=== PATIENT | female | born 1965 | race Caucasian/White ===

== ENCOUNTER 2020-09-11 22:30 | Observation (INO) | payer OTHER ==
--- NOTE | 2020-09-11 22:32 | ERPHSYRPT ---
- History of Present Illness Time Seen by Provider: 09/11/20 22:32 Source: patient Exam Limitations: clinical condition Physician History: This is a 55-year-old white female has a history of asthma and received her second COVID-19 vaccination yesterday at noon. 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 Approximately 4 hours later, the patient felt very fatigued and weak and had muscle aches and pains. At approximately 3:00 this morning she began having symptoms of nausea and vomiting. It has since evolved into shortness of breath. Patient gave herself an albuterol nebulizer treatment. However her shortness of breath worsened. She denies chest pain. She denies abdominal pain. She has a mild cough. Patient is allergic to bees and has an EpiPen in case of envenomation. Patient has remote history of myocardial infarction in the distant past. Patient states that she has had no history of any bleeding or clotting disorders. Timing/Duration: today Activities at Onset: none Severity of Dyspnea-Max: moderate Severity of Dyspnea-Current: moderate Possible Cause: no prior episodes Modifying Factors: Improves With: coughing Associated Symptoms: cough, wheezing, No chest pain/discomfort Allergies/Adverse Reactions: beeswax Allergy (Severe, Verified 09/11/20 22:48) Anaphylactic Reaction shellfish derived Allergy (Severe, Verified 09/11/20 22:48) Anaphylactic Reaction Home Medications: Albuterol Sulfate [Albuterol Sulfate Hfa] 1 neb IH Q4HPRN PRN 09/11/20 [History] Albuterol Sulfate [Proair Hfa] 2 puffs IH Q4HPRN PRN 09/11/20 [History] Atorvastatin Calcium [Lipitor 40Mg] 1 tab PO HS 09/11/20 [History] Dulaglutide [Trulicity] 0.75 mg SQ WEEKLY 09/11/20 [History] Ergocalciferol (Vitamin D2) [Vitamin D] 1 tab PO WEEKLY 09/11/20 [History] Levothyroxine Sodium [Synthroid] 1 tab PO DAILY 09/11/20 [History] Metformin HCl [Fortamet] 1,000 mg PO BID 09/11/20 [History] Ondansetron ODT 4 MG [Zofran Odt 4 mg] 1 tab PO BID PRN 09/11/20 [History] PANTOPRAZOLE 40 mg Tablet [Protonix 40MG Tablet] 1 tab PO DAILY 09/11/20 [History] Zolpidem Tartrate 5 mg PO HS PRN PRN 09/11/20 [History] Travel Risk - International Travel Have you traveled outside of the country in past 3 weeks: No - Coronavirus Screening Symptoms: Cough: New Onset, Shortness of Breath, Vomiting/Diarrhea Close contact with a COVID-19 positive Pt in past 14-21 Days: No - Review of Systems Constitutional: No Symptoms Eyes: No Symptoms Ears, Nose, & Throat: No Symptoms Respiratory: Cough, Dyspnea, Wheezing Cardiac: No Symptoms Abdominal/Gastrointestinal: No Symptoms Genitourinary Symptoms: No Symptoms Musculoskeletal: No Symptoms Skin: No Symptoms Neurological: No Symptoms Psychological: No Symptoms Endocrine: No Symptoms Hematologic/Lymphatic: No Symptoms Immunological/Allergic: No Symptoms All Other Systems: Reviewed and Negative - Past Medical History Pertinent Past Medical History: Yes Cardiac History: Hypertension, Myocardial Infarction (HI) Respiratory History: Asthma Endocrine Medical History: No Pertinent History Musculoskeletal History: No Pertinent History GI Medical History: No Pertinent History History: No Pertinent History Psycho-Social History: No Pertinent History Female Reproductive Disorders: No Pertinent History - Past Surgical History Past Surgical History: Yes - Nursing Vital Signs Nursing Vital Signs: Initial Vital Signs Temperature 98.4 F 09/11/20 22:32 Pulse Rate 113 H 09/11/20 22:32 Respiratory Rate 28 H 09/11/20 22:32 Blood Pressure 153/106 09/11/20 22:32 O2 Sat by Pulse Oximetry 96 09/11/20 22:32 Pain Scale Pain Intensity 0 - Physical Exam General Appearance: moderate distress, alert, anxiety, obese Eye Exam: PERRL/EOMI, eyes nml inspection Ears, Nose, Throat Exam: hearing grossly normal, normal ENT inspection, normal pharynx Neck Exam: normal inspection, non-tender, supple, full range of motion Respiratory Exam: respiratory distress, airway intact, wheezing Cardiovascular/Chest Exam: tachycardia Abdominal/Gastrointestinal Exam: soft, normal bowel sounds, No tenderness Rectal Exam: not done Extremity Exam: non-tender, normal range of motion, normal capillary refill (Tips) Neurologic Exam: alert, oriented x 3, cooperative, normal mood/affect, nml cerebellar function, nml station & gait, sensation nml Skin Exam: normal color, warm, dry Lymphatic Exam: No adenopathy SpO2 Interpretation: normal O2 Delivery: Room Air - Course Nursing assessment & vital signs reviewed: Yes EKG Interpreted by Me: RATE ([id number]), Sinus Tach, NORMAL AXIS, NORMAL INTERVALS, NORMAL QRS, Other (No acute ischemic changes on today's EKG. No comparison EKG available.) Ordered Tests: Active Orders 24 hr Category Date Time Status Shearing Supervisor STAT Care 09/11/20 22:39 Active EKG-ER Only STAT Care 09/11/20 22:38 Active IV Insertion STAT Care 09/11/20 22:38 Active Pulse Oximetry (ED) STAT Care 09/11/20 22:38 Active CHEST 1 VIEW (PORTABLE) Stat Exams 09/11/20 22:38 Ordered CHEST WITH CONTRAST [CT] Stat Exams 09/11/20 23:20 Ordered CBC W DIFF Stat Lab 09/11/20 22:45 Completed CMP Stat Lab 09/11/20 22:45 Completed D-DIMER QUANTITATIVE Stat Lab 09/11/20 22:45 Completed INFLUENZA A+B MILENA Stat Lab 09/11/20 23:21 Completed [place] Screen Stat Lab 09/11/20 22:45 Completed TROPONIN Q3H Lab 09/11/20 22:45 Completed TROPONIN Q3H Lab 09/12/20 01:45 Ordered TROPONIN Q3H Lab 09/12/20 04:45 Ordered TROPONIN Q3H Lab 09/12/20 07:45 Ordered TROPONIN Q3H Lab 09/12/20 10:45 Ordered Transfer Order Routine Transfer 09/12/20 Ordered Medication Summary Generic Name Dose Route Start Last Admin Trade Name Freq PRN Reason Stop Dose Admin Sodium Chloride 1,000 mls @ 100 mls/hr 09/11/20 22:45 09/11/20 22:45 Sodium Chloride 0.9% 1000 Ml IV 10/11/20 22:44 100 mls/hr .Q10H JHOANA Administration Discontinued Medications Generic Name Dose Route Start Last Admin Trade Name Freq PRN Reason Stop Dose Admin Diphenhydramine HCl 50 mg 09/11/20 22:38 09/11/20 22:48 Benadryl 50 Mg/Ml IV 09/11/20 22:39 50 mg STAT ONE Administration Diphenhydramine HCl Confirm 09/11/20 22:44 Benadryl 50 Mg/Ml Administered 09/11/20 22:45 Dose 50 mg .ROUTE .STK-MED ONE Famotidine 20 mg 09/11/20 22:38 09/11/20 22:48 Pepcid 20 Mg Vial IV 09/11/20 22:39 20 mg STAT ONE Administration Famotidine Confirm 09/11/20 22:44 Pepcid 20 Mg Vial Administered 09/11/20 22:45 Dose 20 mg IV .STK-MED ONE Methylprednisolone Sodium Succinate 125 mg 09/11/20 22:38 09/11/20 22:47 Solu-Medrol 125 Mg IV 09/11/20 22:39 125 mg STAT ONE Administration Methylprednisolone Sodium Succinate Confirm 09/11/20 22:44 Solu-Medrol 125 Mg Administered 09/11/20 22:45 Dose 125 mg .ROUTE .STK-MED ONE Ondansetron HCl 4 mg 09/11/20 22:39 09/11/20 22:48 Zofran 4 Mg/2 Ml Vial IV 09/11/20 22:40 4 mg STAT ONE Administration Ondansetron HCl Confirm 09/11/20 22:44 Zofran 4 Mg/2 Ml Vial Administered 09/11/20 22:45 Dose 4 mg .ROUTE .STK-MED ONE Lab/Rad Data: Laboratory Result Diagrams 09/11/20 22:45 09/11/20 22:45 Laboratory Results 09/11/20 09/11/20 09/11/20 Range/Units 23:21 22:45 22:45 WBC (4.0-10.5) K/mm3 RBC (4.1-5.4) M/mm3 Hgb (12.0-16.0) gm/dl Hct (35-47) % MCV (78-100) fl MCH (26-32) pg MCHC (32-36) g/dl RDW (11.5-14.0) % Plt Count (150-450) K/mm3 MPV (7.5-11.0) fl Gran % (36.0-66.0) % Eos # (Auto) (0-0.5) Absolute Lymphs (auto) (1.0-4.6) Absolute Monos (auto) (0.0-1.3) Lymphocytes % (24.0-44.0) % Monocytes % (0.0-12.0) % Eosinophils % (0.00-5.0) % Basophils % (0.0-0.4) % Absolute Granulocytes (1.4-6.9) Basophils # (0-0.4) D-Dimer (215-500) ng/mL Sodium (137-145) mmol/L Potassium (3.5-5.1) mmol/L Chloride (98-107) mmol/L Carbon Dioxide (22-30) mmol/L Anion Gap (5-15) MEQ/L BUN (7-17) mg/dL Creatinine (0.52-1.04) mg/dL Estimated GFR ML/MIN Glucose (74-106) mg/dL Calcium (8.4-10.2) mg/dL Total Bilirubin (0.2-1.3) mg/dL AST (14-36) U/L ALT (0-35) U/L Alkaline Phosphatase (38-126) U/L Troponin I < 0.012 (0.000-0.034) ng/mL Serum Total Protein (6.3-8.2) g/dL Albumin (3.5-5.0) g/dL Monoscreen NEGATIVE (Negative) Influenza Type A Ag NEGATIVE (NEGATIVE) Influenza Type B Ag NEGATIVE (NEGATIVE) 09/11/20 09/11/20 09/11/20 Range/Units 22:45 22:45 22:45 WBC 6.1 (4.0-10.5) K/mm3 RBC 4.60 (4.1-5.4) M/mm3 Hgb 13.6 (12.0-16.0) gm/dl Hct 41.6 (35-47) % MCV 90.4 (78-100) fl MCH 29.6 (26-32) pg MCHC 32.7 (32-36) g/dl RDW 13.4 (11.5-14.0) % Plt Count 169 (150-450) K/mm3 MPV 9.4 (7.5-11.0) fl Gran % 61.6 (36.0-66.0) % Eos # (Auto) 0.01 (0-0.5) Absolute Lymphs (auto) 1.68 (1.0-4.6) Absolute Monos (auto) 0.61 (0.0-1.3) Lymphocytes % 27.8 (24.0-44.0) % Monocytes % 10.1 (0.0-12.0) % Eosinophils % 0.2 (0.00-5.0) % Basophils % 0.3 (0.0-0.4) % Absolute Granulocytes 3.73 (1.4-6.9) Basophils # 0.02 (0-0.4) D-Dimer 3173 H* (215-500) ng/mL Sodium 136 L (137-145) mmol/L Potassium 3.6 (3.5-5.1) mmol/L Chloride 103 (98-107) mmol/L Carbon Dioxide 21 L (22-30) mmol/L Anion Gap 16.8 H (5-15) MEQ/L BUN 9 (7-17) mg/dL Creatinine 0.75 (0.52-1.04) mg/dL Estimated GFR > 60.0 ML/MIN Glucose 135 H (74-106) mg/dL Calcium 10.0 (8.4-10.2) mg/dL Total Bilirubin 0.90 (0.2-1.3) mg/dL AST 48 H (14-36) U/L ALT 66 H (0-35) U/L Alkaline Phosphatase 67 (38-126) U/L Troponin I (0.000-0.034) ng/mL Serum Total Protein 7.4 (6.3-8.2) g/dL Albumin 4.5 (3.5-5.0) g/dL Monoscreen (Negative) Influenza Type A Ag (NEGATIVE) Influenza Type B Ag (NEGATIVE) - Progress Air Movement: fair Progress Note: 09/11/20 23:49 Patient told me that she is allergic to shellfish. She also is stated that she has had intravenous contrast before without any issues after premedicating with Benadryl and steroids. Patient has been premedicated with Benadryl and methylprednisolone. Her D-dimer is elevated and she has shortness of breath and therefore we will proceed with CTA of chest to evaluate for the presence of pulmonary emboli. 09/12/20 00:08 Patient returns from the CTA of the chest without any unusual or acute symptoms following injection of the contrast. Patient CTA of the chest results shows no visible acute pulmonary embolism. There are no acute cardiopulmonary processes. 09/12/20 00:22 Medical decision making: This patient needs hospitalization and observation for at least 24 [address]. I spoke with Dr. Sandoval, our Covid unit hospitalist. He agrees. I asked him whether or not we needed to perform a rapid Covid test and he stated he did not believe we needed to at this time. We used the test results to determine where the patient should be placed. The patient will be pl aced in observation in the Covid unit. He wants to continue steroids, oxygen and nebulizer treatments. We will also provide low rate IV fluids. Blood Culture(s) Obtained: Yes Antibiotics given: No Counseled pt/family regarding: lab results, diagnosis, need for follow-up, rad results - Departure Departure Disposition: Observation Clinical Impression: Shortness of breath after COVID-19 vaccination Condition: Stable Critical Care Time: No Referrals: DOCTOR,NO FAMILY [Primary Care Provider] -
[2020-09-11] MEDS ORDERED: Pepcid 20 MG VIAL IV ONE ×2 (22:38→22:44)
[2020-09-11] MEDS ORDERED: BENADRYL 50 MG/ML IV ONE (22:38)
[2020-09-11] MEDS ORDERED: solu-MEDROL 125 MG IV ONE (22:38)
[2020-09-11] MEDS ORDERED: Zofran 4 MG/2 ML VIAL IV ONE (22:39)
[2020-09-11] MEDS ORDERED: BENADRYL 50 MG/ML ONE (22:44)
[2020-09-11] MEDS ORDERED: Zofran 4 MG/2 ML VIAL ONE (22:44)
[2020-09-11] MEDS ORDERED: Sodium Chloride 0.9% 1000 ML 1,000 ML ONE (22:44)
[2020-09-11] MEDS ORDERED: solu-MEDROL 125 MG ONE (22:44)
[2020-09-11] MEDS ORDERED: Sodium Chloride 0.9% 1000 ML 1,000 ML IV SCH (22:45)
[2020-09-11 22:54] LABS: Absolute Neutrophil Ct (ANC) 3.73 (1.4-6.9); BASOPHIL % 0.3 % (0.0-0.4); Basophil (Absolute #) 0.02 (0-0.4); Eosinophil % 0.2 % (0.00-5.0); Eosinophil (Absolute #) 0.01 (0-0.5); Hematocrit 41.6 % (35-47); Hemoglobin 13.6 gm/dl (12.0-16.0); Lymphocyte (Absolute #) 1.68 (1.0-4.6); Lymphocytes % 27.8 % (24.0-44.0); Mean Cell Volume 90.4 fl (78-100); Mean Corpuscular Hemoglobin 29.6 pg (26-32); Mean Corpuscular Hgb Concent. 32.7 g/dl (32-36); Mean Platelet Volume 9.4 fl (7.5-11.0); Monocyte (Absolute #) 0.61 (0.0-1.3); Monocytes % 10.1 % (0.0-12.0); Neutrophil % 61.6 % (36.0-66.0); Platelet Count 169 K/mm3 (150-450); Red Cell Distribution Width 13.4 % (11.5-14.0); White Blood Count 6.1 K/mm3 (4.0-10.5)
[2020-09-11 23:06] LABS: ALBUMIN 4.5 g/dL (3.5-5.0); ALKALINE PHOSPHATASE 67 U/L (38-126); ANION GAP 16.8 MEQ/L (5-15); BLOOD UREA NITROGEN 9 mg/dL (7-17); CHLORIDE 103 mmol/L (98-107); Carbon Dioxide 21 mmol/L (22-30); Creatinine 1 0.75 mg/dL (0.52-1.04); EST GLOMERULAR FILTRATION RATE > 60.0 ML/MIN; Glucose 135 mg/dL (74-106); Potassium 3.6 mmol/L (3.5-5.1); SGOT/AST 48 U/L (14-36); SGPT/ALT 66 U/L (0-35); SODIUM 136 mmol/L (137-145); Total Protein 7.4 g/dL (6.3-8.2)
[2020-09-11] MEDS ORDERED: HOLD METFORMIN PRODUCTS FOR 48 HOURS MC SCH (23:40)
[2020-09-11 23:46] LABS: INFLUENZA A NEGATIVE (NEGATIVE); INFLUENZA B NEGATIVE (NEGATIVE)
[2020-09-12] MEDS ORDERED: PROVENTIL 2.5 MG/3 ML NEB IH ONE ×2 (00:34→00:36)
[2020-09-12] MEDS ORDERED: solu-MEDROL 125 MG IV SCH (00:57)
[2020-09-12] MEDS ORDERED: Zofran 4 MG/2 ML VIAL IV PRN (00:57)
[2020-09-12] MEDS ORDERED: TYLENOL 325 MG PO PRN (00:57)
[2020-09-12] MEDS: Sodium Chloride 0.9% 1000 ML 1,000 ML IV SCH ×2 (02:00→20:28)
[2020-09-12 05:01] LABS: Hematocrit 40.3 % (35-47); Hemoglobin 12.7 gm/dl (12.0-16.0); Mean Cell Volume 92.6 fl (78-100); Mean Corpuscular Hemoglobin 29.2 pg (26-32); Mean Corpuscular Hgb Concent. 31.5 g/dl (32-36); Mean Platelet Volume 9.4 fl (7.5-11.0); Platelet Count 155 K/mm3 (150-450); Red Blood Count 4.35 M/mm3 (4.1-5.4); Red Cell Distribution Width 13.2 % (11.5-14.0); White Blood Count 4.2 K/mm3 (4.0-10.5)
[2020-09-12 05:18] LABS: ANION GAP 16.5 MEQ/L (5-15); BLOOD UREA NITROGEN 8 mg/dL (7-17); CHLORIDE 106 mmol/L (98-107); Calcium 9.3 mg/dL (8.4-10.2); Carbon Dioxide 20 mmol/L (22-30); Creatinine 1 0.67 mg/dL (0.52-1.04); EST GLOMERULAR FILTRATION RATE > 60.0 ML/MIN; Glucose 233 mg/dL (74-106); Potassium 4.1 mmol/L (3.5-5.1); SODIUM 139 mmol/L (137-145)
[2020-09-12] MEDS: solu-MEDROL 125 MG IV SCH ×3 (06:20→21:57)
[2020-09-12] MEDS ORDERED: Zofran 4 MG/2 ML VIAL ONE (06:28)
[2020-09-12] MEDS ORDERED: VENTOLIN COMMON CANISTER IH PRN (07:00)
[2020-09-12] MEDS: HUMULIN R SQ PRN ×4 (08:10→22:01)
--- NOTE | 2020-09-12 09:18 | XRAY ---
Indication: Short of breath. Elevated d-dimer. Multiple contiguous axial images obtained through the chest using 80 cc Isovue 370 contrast and PE protocol. Comparison: None There is good opacification of the pulmonary arteries to include the lobar and segmental branches. No pulmonary embolus. Aorta is normal in course and caliber. No pathologic mediastinal/hilar lymphadenopathy. Lungs demonstrates minimal bilateral dependent atelectasis. No suspicious pulmonary mass, infiltrate, consolidation, or effusion. Bony thorax intact with minimal degenerative changes throughout the spine. Left axilla demonstrates a few enlarged lymph nodes, largest 1.1 x 1.6 cm. Limited upper abdomen demonstrates fatty liver. Impression: 1. Negative pulmonary embolus. No acute cardiopulmonary abnormalities. 2. Enlarged left axillary lymph nodes. 3. Fatty liver. Comment: Preliminary interpretation was made by [facility]. No critical discrepancy.
--- NOTE | 2020-09-12 09:18 | XRAY ---
Indication: Short of breath. Comparison: None Portable chest demonstrates normal heart and lungs. Bony thorax intact with minimal degenerative changes.
[2020-09-12] MEDS ORDERED: Ambien 5 MG Tablet PO PRN (10:18)
[2020-09-12] MEDS ORDERED: Ventolin Hfa MDI IH PRN (10:18)
[2020-09-12] MEDS ORDERED: NON-FORMULARY ITEM (Dulaglutide [Trulicity] 0.75 MG) SQ SCH (10:30)
[2020-09-12] MEDS ORDERED: ZOFRAN ODT 4 MG PO PRN (10:30)
[2020-09-12] MEDS ORDERED: MEDICATION INTERVENTION MC SCH (10:45)
[2020-09-12 11:00] LABS: COVID AG -BINAX NOW RAPID TEST NEGATIVE (NEGATIVE)
--- NOTE | 2020-09-12 11:33 | HP ---
CHIEF COMPLAINT: Shortness of breath, cough, chest tightness, nausea, vomiting, low grade fever. HISTORY OF PRESENT ILLNESS: The patient is a nurse at [employer]. She had COVID in the fall seven or eight months ago and recovered without problems. However these symptoms started up the last two days. She has self-medicated using Proventil inhaler and got progressively shortness of breath and feeling horrible and was vomiting and came to the emergency room. She states she just had her COVID vaccine right before this started. PAST MEDICAL HISTORY: Hypertension, asthma and apparently has had myocardial infarction in the past. MEDICATIONS: Albuterol by nebulizer not used very often. ProAir occasionally used. Lipitor 40, Trulicity 0.75, vitamin D2 q.d., Synthroid 1 q.d., Metformin 1,000 q.d., Zofran 4 mg q.d. PRN, Protonix 40 q.d., Ambien 5 h.s. PRN. ALLERGIES: SULFA. BEESWAX (anaphylactic reaction and keeps an Epipen). SHELLFISH (anaphylactic reaction). TRAVEL RISK: No - [place] of the [place]. No close contact with any COVID patient's in the last two to three weeks. REVIEW OF SYSTEMS: HEENT: Face hurts. ENT: Slightly dry. RESPIRATORY: Coughing, wheezing, tightness in her chest. CARDIAC: Does not sound like angina. No rapid heart rate. No syncope. GI: The patient has had some vomiting and nausea for the last two days and cannot eat anything. : No problems urinating. MUSCULOSKELETAL: Does have myalgia. NEUROLOGIC: No headaches. ENDOCRINE: The patient has diabetes treated with Metformin, hypothyroidism. SOCIAL HISTORY: The patient is and has several children. Nobody has COVID at this point. PHYSICAL EXAMINATION: VITAL SIGNS: Temperature 98F, pulse 113, respirations 28, blood pressure 153/106. O2 saturation 96% on 2 liters. O2 saturation was 94% on room air. GENERAL: The patient had some moderate distress in the emergency room. Presently she looks much better on 2 liters. She is alert, pleasant and not anxious this morning. HEENT: Pupils equal and reactive to light. NECK: Supple without adenopathy. CHEST: Clear. CVS: No murmurs or gallops. Heart rate is down to 80. ABDOMEN: Soft. No tenderness or masses. EXTREMITIES: No edema. No rashes. LAB DATA AND TESTS: EKG was normal. CT of the chest was normal. D-dimer was elevated initially to 600 this morning and it is down to 300. IMPRESSION: 1) The patient has symptoms of COVID, will get a COVID test. It would be unlikely to have COVID again. 2) She has just recently got the, I believe, second injection for the virus so this could be reaction to virus since she is allergic to shellfish and other things and has had anaphylactic shock. She received Benadryl in the emergency room appropriately maybe for that. She is on Pepcid, Solu-Medrol and Zofran. PLAN: At this point will continue with the oxygen, Zofran and get a quick COVID test to make sure she was not re-infected. Zofran for nausea. PROGNOSIS: Good.
[2020-09-12] MEDS: SYNTHROID 112 MCG PO SCH (11:46)
[2020-09-12] MEDS: Vitamin B-12 500 MCG PO SCH (11:46)
[2020-09-12] MEDS: Protonix 40MG Tablet PO SCH (11:46)
[2020-09-12] MEDS ORDERED: METFORMIN HCL 1000 MG PO SCH (22:00)
[2020-09-12] MEDS ORDERED: MAGNESIUM CHLORIDE PO SCH (22:00)
[2020-09-12] MEDS ORDERED: LIPITOR 40MG PO SCH (22:00)
[2020-09-12] MEDS ORDERED: ZOCOR 20MG PO SCH (22:00)
[2020-09-12] MEDS ORDERED: MAG-OX 400 PO SCH (22:00)
[2020-09-13] MEDS: solu-MEDROL 125 MG IV SCH (06:31)
[2020-09-13 07:45] VITALS: BP 118/93
[2020-09-13] MEDS: HUMULIN R SQ PRN (08:39)
[2020-09-13] MEDS: Protonix 40MG Tablet PO SCH (09:38)
[2020-09-13] MEDS: Vitamin B-12 500 MCG PO SCH (09:38)
[2020-09-13] MEDS: SYNTHROID 112 MCG PO SCH (09:38)
[2020-09-13 09:59] VITALS: PULSE 90; O2SAT 93
[2020-09-13] MEDS ORDERED: CYANOCOBALAMIN PO SCH (10:00)
[2020-09-14] MEDS ORDERED: Glucophage XR 500 MG PO SCH (08:00)
== END 2020-09-13 11:20 | disposition home or self-care (01) ==
LOC: ED 22:30 → MED SURG 09-12 00:39
PROVIDERS: ADMIT Family Medicine; ATTEND Family Medicine
DX: R06.02 Shortness of breath (principal); R53.83 Other fatigue; R11.2 Nausea with vomiting, unspecified; R50.9 Fever, unspecified; R07.89 Other chest pain; J45.909 Unspecified asthma, uncomplicated; Z86.16 Personal history of COVID-19; E11.9 Type 2 diabetes mellitus without complications; Z79.899 Other long term (current) drug therapy; I10 Essential (primary) hypertension; I25.2 Old myocardial infarction; E03.9 Hypothyroidism, unspecified; R05 Cough
CPT/HCPCS: 36000; 36415; 71045; 71260; 80048; 80053; 82947; 83036; 84484; 85025; 85027; 85379; 86308; 87400; 93005; 93041; 93268; 94640; 94760; 94762; 96360; 96361; 96374; 96375; 99000; 99285; 99291; G0378; J1200; J1815; J2405; J2930; J7609; A9270-GY